=== PATIENT | female | born 1980 | race Caucasian/White ===

== ENCOUNTER → 2025-05-12 | Outpatient (CLI) | payer OTHER, SELFPAY ==
--- NOTE | 2025-05-12 08:50 | US_ITS ---
PROCEDURE: ABDOMEN COMPLETE 05/12/2025 REASON FOR EXAM: EPIGASTRIC, ABDOMINAL PAIN TECHNIQUE: Procedure Code: USABDC Modality: US Procedure: ABDOMEN COMPLETE FINDINGS: LIVER: Hepatomegaly to 17 cm. normal echogenicity. No mass. GALLBLADDER: Normal in size. No gallstones. No sludge. No wall thickening. COMMON BILE DUCT: Normal in caliber. IVC: normal limits. PANCREAS: Normal in size and echogenicity. Tail of pancreas is not well seen. RIGHT KIDNEY: Normal in size and echogenicity. No mass. No urinary stones. No hydronephrosis. LEFT KIDNEY: Normal in size and echogenicity. No mass. No urinary stones. No hydronephrosis. SPLEEN: Normal in size and echogenicity. No mass. Aorta: normal limits. OTHERS: No free fluid. US/Abdomen Complete IMPRESSION: No acute cholecystitis. Pancreas appears sonographically within normal limits. Hepatomegaly. Reading Location: [facility]
--- OUTSIDE RECORDS SUMMARY | 2025-05-12 09:11 | XMS RPT_ITS | CCD ---
Author Organization [facility] Care Team Providers Care Office Electrician Name Role Phone HAROLDO CARLOS CNM Admitting Unavailable ZARCO, CARLOS CNM Primary Care Unavailable ZARCO, CARLOS CNM Attending Unavailable ZARCO, CARLOS CNM Admitting Unavailable ZARCO, CARLOS CNM Primary Care Unavailable ZARCO, CARLOS CNM Attending Unavailable ZARCO, CARLOS CNM Admitting Unavailable ZARCO, CARLOS CNM Primary Care Unavailable ZARCO, CARLOS CNM Attending Unavailable ZARCO, CARLOS CNM Admitting Unavailable ZARCO, CARLOS CNM Primary Care Unavailable ZARCO, CARLOS CNM Attending Unavailable ZARCO, CARLOS CNM Admitting Unavailable ZARCO, CARLOS CNM Primary Care Unavailable ZARCO, CARLOS CNM Attending Unavailable Trena Greer MD Unavailable [phone] Joshua TRACK VEHICLE REPAIRER, Zara Unavailable Natanael CEBALLOS, Ismael Alonso Unavailable Sarah CNM, Crystal K Unavailable Lucía TRACK VEHICLE REPAIRER, Nicolle Unavailable Unavailable Unavailable Unavailable Anselmo GONZALES, Linnea Attending Unavailable Rory MCNAMARA, Sapna Mclaughlin Unavailable [phone] [facility], Ysabel Unavailable Unavailab le (Anderson), [facility] Unavailable TRENA GREER Consulting Unavailable TRENA GREER Referring Unavailable KHRIS CONNOR DO Admitting Unavailable KHRIS CONNOR DO Primary Care Unavailable KHRIS CONNOR DO Attending Unavailable PROVIDER, UNKNOWN Consulting Unavailable PROVIDER, UNKNOWN Consulting Unavailable PROVIDER, UNKNOWN Consulting Unavailable Allergies Allergy Classification Reported Allergen(s) Allergy Type Date of Onset Reaction(s) Facility Penicillins (antibiotic) (2 sources) Penicillin Drug Allergy [facility] (11 sources) Penicillins [facility], [facility] (1 source) Penicillins Drug allergy (disorder) 07-16-2023 [facility] Repository (1 source) Penicillin Drug Allergy [facility] Medications Current Medications Medication Drug Class(es) Dates Sig (Normalized) Sig (Original) sertraline 25 mg oral tablet (18 sources) Serotonin Reuptake Inhibitor Start: 06-22-2024 sertraline 25 mg tablet ; 1 (one) tablet daily for 0 days Quantity: 90 {Tablet} Refills: 3 Ordered: 22-Jun-2024 MD Trena Greer Start: 22-Jun-2024 Start: 04-27-2024 sertraline 25 mg tablet ; 1 (one) tablet daily for 0 days Quantity: 90 {Tablet} Refills: 3 Ordered: 27-Apr-2024 MD Trena Greer Start: 27-Apr-2024 Start: 03-11-2024 sertraline 25 mg tablet ; 1 (one) tablet daily for 0 days Quantity: 60 {Tablet} Refills: 0 Ordered: 11-Mar-2024 MD Trena Greer Start: 11-Mar-2024 Start: 04-14-2018 End: 04-22-2019 take 1 tablet by mouth once daily in the morning Sertraline HCl 50 MG Oral Tablet ; 1 (one) Tablet qam for 0 days Quantity: 30 {Tablet} Refills: 5 Ordered: 22-Apr-2019 TESFAYE Lewis Start: 14-Apr-2018 End: 22-Apr-2019 Status: Inactive Completed/Discontinued Medications Medication Drug Class(es) Dates Sig (Normalized) Sig (Original) doxycycline monohydrate 100 mg oral tablet (12 sources) Tetracycline-class Drug Start: 07-24-2023 End: 10-15-2023 doxycycline monohydrate 100 mg tablet ; 1 (one) Tablet bid for 0 days Quantity: 20 {Tablet} Refills: 0 Ordered: 15-Oct-2023 TESFAYE Hudson Celina Christy Start: 24-Jul-2023 End: 15-Oct-2023 Status: Inactive levonorgestrel 0.721242 mg/hr intrauterine system (12 sources) Progestin, Progestin-containin g Intrauterine Device Mirena (52 MG) 20 MCG/24HR Intrauterine Intrauterine Device ; (20 MCG/24HR) Status: Inactive nystatin 801385 unt/ml topical cream (12 sources) Polyene Antifungal Start: 06-04-2022 End: 07-24-2023 nystatin 100,000 unit/gram topical cream ; 1 (one) Application to affected area three times daily for 0 days Quantity: 30 {Gram} Refills: 1 Ordered: 24-Jul-2023 TESFAYE Lewis Start: 04-Jun-2022 End: 24-Jul-2023 Status: Inactive oseltamivir 75 mg oral capsule (20 sources) Neuraminidase Inhibitor Start: 05-02-2022 End: 05-07-2022 take 1 capsule by mouth twice daily Tamiflu 75 MG Oral Capsule ; 1 (one) Capsule bid for 5 days Quantity: 10 {Capsule} Refills: 0 Ordered: 02-May-2022 MD Ismael Santoyo Start: 02-May-2022 End: 07-May-2022 Status: Inactive Start: 07-16-2018 End: 04-22-2019 take 1 capsule by mouth twice daily Oseltamivir Phosphate 75 MG Oral Capsule ; 1 (one) Capsule two times daily for 5 days Quantity: 10 {Capsule} Refills: 0 Ordered: 22-Apr-2019 TESFAYE Lewis Start: 16-Jul-2018 End: 22-Apr-2019 Status: Inactive Problems Active Problems Problem Classification Problem Date Documented Date Episodic/Chronic Adjustment disorders (14 sources) Adjustment disorder with anxious mood; Translations: [Adjustment disorder with anxiety] 03-11-2024 Chronic Contraceptive and procreative management (20 sources) Intrauterine contraceptive device in situ; Translations: [Presence of (intrauterine) contraceptive device] 07-24-2023 Episodic E Codes: Natural/environment (12 sources) Cat bite - wound; Translations: [Bitten by cat, initial encounter] 04-22-2019 Episodic Fever of unknown origin (20 sources) Fever; Translations: [Fever, unspecified] Onset: 09-18-2023 06-09-2021 Episodic Headache; including migraine (14 sources) Headache; Translations: [Headache] 10-15-2023 Episodic Immunizations and screening for infectious disease (20 sources) Contact with or exposure to other viral diseases; Translations: [Contact with and (suspected) exposure to other viral communicable diseases] 06-09-2021 Episodic Influenza (20 sources) Influenza; Translations: [Influenza due to unidentified influenza virus with other respiratory manifestations] 05-02-2022 Episodic Miscellaneous mental health disorders (12 sources) depression; Translations: [ depression] 04-15-2018 Episodic Nausea and vomiting (13 sources) Nausea; Translations: [Nausea] 10-15-2023 Episodic Other and unspecified benign neoplasm (12 sources) Benign neoplasm of soft tissue; Translations: [Melanocytic nevi, unspecified] 12-11-2021 Episodic Other complications of ; puerperium affecting management of mother (12 sources) Obstetric nipple infection with complication; Translations: [Infection of nipple associated with the puerperium] 01-17-2022 Episodic Other connective tissue disease (12 sources) Plantar fasciitis of right foot; Translations: [Plantar fascial fibromatosis] 04-15-2018 Episodic Other injuries and conditions due to external causes (12 sources) Injury of right ankle; Translations: [Unspecified injury of right ankle, initial encounter] 12-04-2019 Episodic Other nutritional; endocrine; and metabolic disorders (14 sources) Overweight in adulthood with body mass index of 25 or more but less than 30; Translations: [Body mass index (BMI) 28.0-28.9, adult] 03-11-2024 Episodic Other screening for suspected conditions (not mental disorders or infectious disease) (20 sources) Patient encounter status; Translations: [Encounter for screening for lipoid disorders] 10-19-2019 Episodic Other skin disorders (12 sources) Skin tag; Translations: [Other hypertrophic disorders of the skin] 12-11-2021 Episodic Other skin disorders (12 sources) Skin lesion; Translations: [Disorder of the skin and subcutaneous tissue, unspecified] 09-30-2019 Episodic Other skin disorders (8 sources) Skin finding; Translations: [Unspecified skin changes] 03-12-2024 Episodic Other upper respiratory infections (20 sources) Acute ethmoidal sinusitis; Translations: [Acute ethmoidal sinusitis, unspecified] Onset: 09-18-2023 07-24-2023 Episodic Residual codes; unclassified (20 sources) Family history of malignant neoplasm of pancreas; Translations: [Family history of malignant neoplasm of digestive organs] 07-24-2023 Episodic Residual codes; unclassified (12 sources) Up-to-date with immunizations; Translations: [Personal history of other drug therapy] 07-24-2023 Episodic Screening and history of mental health and substance abuse codes (12 sources) Ex-smoker; Translations: [Personal history of nicotine dependence] 07-24-2023 Episodic Unclassified (12 sources) Number of Children 11-03-2019 Comment on above: 2. 4. Unclassified (12 sources) Number of Pregnancies 11-03-2019 Comment on above: 3. 4. Unclassified (12 sources) Vaginal deliveries 11-03-2019 Comment on above: 2. 4. Unclassified (1 source) Cough, unspecified; Translations: [Cough, unspecified] Onset: 09-18-2023 Past or Other Problems Problem Classification Problem Date Documented Da te Episodic/Chronic Unclassified (12 sources) Cold Symptoms - Symptoms include nasal congestion, dry cough, general malaise and headache, but do not include fever. The onset was sudden 1 week(s) ago. The patient describes this as moderate in severity and worsening. Current treatment includes home remedies. Risk factors do not include child in daycare. The patient has not been exposed to secondhand smoke. Note for Upper respiratory infection: - was positive for flu B. She went to urgent care and was negative but given Tamiflu on 07/16 due to exposure. 07-24-2023 Unclassified (12 sources) Skin lesion - Note for Skin lesion: 4 moles/skin tags on chest. 12-11-2021 Unclassified (12 sources) Ankle pain - The onset of the ankle pain has been sudden and has been occurring for 2 weeks. The course has been worsening. The pain is characterized as a dull aching. The pain is in the right ankle. 12-04-2019 Unclassified (12 sources) Well adult female - The patient feels well with no complaints, has good energy level and is sleeping well. The patient takes supplemental vitamins. The patient does not exercise. The patient sleeps 8 hours per night. Note for Well adult female: -Plans IUD removal in next year and wishes to have pap test at that time. She never had abnormal. She has no breast complaints. She has had diarrhea for 8 hours and wonders if she picked something up from a calf or eating carry out food. She has some moles she will want to have removed in the future. 10-19-2019 Unclassified (12 sources) Skin lesion - The skin lesion appeared gradually and has been occurring for 3 years. It has been increasing in size. The lesion is characterized as red and raised above the skin. The lesion is located on the trunk (chest). 09-30-2019 Unclassified (12 sources) cat bite - Bit by a barn cat on 4th finger left hand this morning. It continues to bleed. She does not know last tetanus. 04-22-2019 Unclassified (12 sources) Foot pain - The pain is in the right foot and is located in the entire foot. The onset of the foot pain was gradual and has been occurring in an intermittent pattern for 3 weeks. The pain is moderate. The pain is characterized as a dull aching. 04-15-2018 Unclassified (11 sources) Nausea - The onset of the nausea has been acute and has been occurring in a persistent pattern for 1 day. The course has been increasing. The symptoms have no aggravating factors. The symptoms have no relieving factors. The symptoms have been associated with fever (101 yesterday - she has not checked her temperature today.) and headache, but there has been no associated abdominal pain, chest pain, diarrhea, dysuria, myalgia, neck stiffness, , upper respiratory infection symptoms or vomiting. Note for Nausea: Tylenol has been bringing the fever down but has not helped the headache.Patient denies any known sick contacts. 10-15-2023 Unclassified (1 source) Well adult female 03-11-2024 Unclassified (7 sources) Well adult female - The patient feels well with minor complaints, has decreased energy level and is sleeping well. The patient takes no supplemental vitamins & iron. The patient does not exercise. The patient sleeps 8 hours per night. 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 [address] [phone] 02/14/2025 Patient: GEOFF AGUILAR Sex: Female : 1980 Age: 44y MEASUREMENTS: Wt: 90.7 kg, Ht/Mc: 74.0 in, BMI: 25.68 ALLERGIES: Penicillins Medication Ordered Medication Administration Date/Time Glucagon IVP 1 20:36 02/14 Glucagon IVP 1 mg given via Site# 1. Given mg (NOW x1) Allergies verified and confirmed 5 rights. IV patency 20:36 02/14/2025 established. IV site checked: no pain, redness, or swelling. Ana Oseguera IV flushed thoroughly pre-medication administration. IVP R.N. given by nurse. Information reviewed with patient. - 20:39 Scanned Ana Oseguera R.N. Carafate PO 1 g 23:13 02/14 Carafate PO 1 g given. Allergies verified and Given (NOW x1) confirmed 5 rights. Information reviewed with patient. - 23:13 02/14/2025 23:13 Susana Nagy R.N. Scanned 1 of 1 [facility] ED NURSES CLINICAL NOTEon ED NURSES CLINICAL NOTE Nurse Narrative - GEOFF AGUILAR, : 1980, , Nurse Clinical Narrative [address] [address] [id number] 02/14/2025 19:51:00 Patient: GEOFF AGUILAR Sex: Female : 1980 Age: 44y Disposition: Discharge to Home Disposition Decision Time: 22:48 02/14/2025 Departure Time: 23:38 02/14/2025 TRIAGE Arrived by private vehicle. Historian: (patient). Primary physician (Vacc). Triage time: 19:54 02/14/2025. Acuity: LEVEL 2. Chief Complaint: (Chest Pressure with swallowing). This started yesterday. ( Patient states that she has a midsternal chest pressure when she swallows. She is concerned that there may be food in her esophagus from dinner on Saturday night.). No difficulty breathing. SEPSIS SCREEN: NEGATIVE. SIRS criteria negative. -- 19:59 02/14/25 FARHAD Sharp R.N. 19:57 02/14/25. BP: 117/82 MAP: 94. HR: 70. RR: 16. O2 saturation: 96% Temperature: 98.8 F (oral). Pain level now 0/10. -- 19:58 02/14/25 SANDERT Nathalia Sharp R.N. Measurements: 19:57 02/14/25 Wt: 90.7 kg, Ht/Mc: 74.0 in, BMI: 25.68 -- 19:57 02/14/25 SANDERT Nathalia Sharp R.N. Medications: sertraline 25 mg tablet -- 20:00 02/14/25 SANDERT Nathalia Sharp R.N. 1 of 4 Nurse Narrative - GEOFF AGUILAR, : 1980, , Allergies: Penicillins -- 19:55 02/14/25 FARHAD Sharp R.N. Problems: Depression -- 19:57 02/14/25 SANDERT Nathalia Sharp R.N. Surgeries: Jaw Surgery: Performed 2000. Bilateral -- 19:56 02/14/25 FARHAD Sharp R.N. History 19:54 02/14/25. SOCIAL HX: Never smoker. No alcohol use or drug use. The patient has not traveled outside the [place] Infectious disease exposure: No infectious disease exposure. ABUSE ASSESSMENT: The patient answered yes to the question(s) Do you feel safe in your home? and no to the question(s) Are you afraid to go home?. SELF HARM ASSESSMENT: Self harm assessment was performed. The patient answered no to the question(s) Have you recently felt down, depressed, or hopeless? and Do you have thoughts of harming or killing yourself?. FALL RISK ASSESSMENT: Fall risk assessment completed. No risk factors identified. -- 19:59 02/14/25 FARHAD Sharp R.N. Interventions 19:54 02/14/25. Advanced care plan discussed with patient. Patient does not have advanced directive. -- 19:59 02/14/25 EDT Nathalia Aron, R.N. PHYSICAL ASSESSMENT 19:54 02/14/25. BP: 117/82 MAP: 91 mmHg. HR: 62 bpm. -- 22:02/14/25 EDT Ana Oseguera R.N. 2 of 4 Nurse Narrative - GEOFF AGUILAR, : 1980, , 19:56 02/14/25. HR: 66 bpm. O2 saturation: 96%. -- 22:28 02/14/25 EDT Ana Oseguera R.N. 19:57 02/14/25. BP: 117/82 MAP: 94. HR: 70. RR: 16. O2 saturation: 96% Temperature: 98.8 F (oral). Pain level now 0/10. -- 22:02/14/25 EDT Ana Oseguera R.N. 20:27 02/14/25. Ambulatory to room. Patient gowned. GENERAL / NEURO / PSYCH: Alert. Oriented X 4. RESPIRATORY: Respirations not labored. Breath sounds within normal limits. CVS: Heart sounds within normal limits. GI / : Abdomen soft and nontender. SKIN: Skin is warm and dry. -- 22:02/14/25 EDT nAa Oseguera R.N. NURSING PROGRESS NOTES 19:51 02/14/25. 12-LEAD EKG: EKG time: (19:51 02/14/2025). 12-Lead EKG was ordered, performed by me and shown to the ED physician. Sinus rhythm with marked sinus arrhythmia. -- 20:11 02/14/25 EDT Nathalia Sharp R.N. 20:02/14/25. Site #1 started in the right antecubital space with an 18g needle; 1 attempt. Blood drawn: rainbow set tube(s). Saline lock flushed with 5 mL saline. -- 20:31 02/14/25 EDT Martha Zarco R.N. 20:36 02/14/25. Glucagon IVP 1 mg given via Site# 1. Allergies verified and confirmed 5 rights. IV patency established. IV site checked: no pain, redness, or swelling. IV flushed thoroughly pre-medication administration. IVP given by nurse. Information reviewed with patient. -- 20:39 02/14/25 EDT Ana Oseguera R.N. 21:20 02/14/25. Patient transported to radiology by stretcher with division order technician. -- 22:02/14/25 EDT Ana Oseguera R.N. 21:40 02/14/25. Patient returned from radiology by stretcher with division order technician. -- 22:02/14/25 EDT Ana Oseguera R.N. 22:12 02/14/25. The patient reports no complaints and the patient is calm and resting quietly. -- 22:02/14/25 EDT Ana Oseguera R.N. 22:02/14/25. The patient reports no complaints and the patient is calm and sleeping. -- 22:02/14/25 EDT Ana Oseguera R.N. 23:02/14/25. Carafate PO 1 g given. Allergies verified and confirmed 5 rights. Information reviewed with patient. -- 23:02/14/25 EDT Ana Oseguera R.N. 23:02/14/25. Site #1 removed upon discharge. Catheter intact. Pressure dressing applied. -- 23:02/14/25 EDT Ana Jo (more content not included)... [facility] ED ORDER SHEET (CPOE ONLY)on 02-17-2025 ED ORDER SHEET (CPOE ONLY) Order Sheet - GEOFF AGUILAR, : 1980, , Order Sheet [address] [address] [id number] 02/14/2025 Patient: GEOFF AGUILAR Sex: Female : 1980 Age: 44y MEASUREMENTS: Wt: 90.7 kg, Ht/Mc: 74.0 in, BMI: 25.68 ALLERGIES: Penicillins MEDICATION/IV/DRIP/FL UID ORDERS Acknowledge Order Description Priority Entered d Completed Glucagon IVP1 mg (NOW 20:26 02/14/2025 20:29 20:39 x1) Khris Connor D.O. 02/14/2025 02/14/2025 Susana Torre R.N. Carafate PO1 g (NOW x1) 22:44 02/14/2025 23:08 23:13 Khris Connor D.O. 02/14/2025 02/14/2025 Susana Torre R.N. LAB ORDERS Acknowledge Order Description Priority Entered d Collected Completed CBC w Diff Stat Stat 20:06 20:28 20:29 02/14/2025 02/14/2025 02/14/2025 Martha Mera Tessa Miller, D.O. R.N. RRemediosNRemedios 1 of 3 Order Sheet - ARELIS AGUILARFER, : 1980, , BNP Stat Stat 20:06 20:28 20:29 02/14/2025 02/14/2025 02/14/2025 Martha Mera Tessa Miller, D.O. R.N. R.NRemedios CMP Stat Stat 20:06 20:28 20:29 02/14/2025 02/14/2025 02/14/2025 Martha Mera Tessa Miller, D.O. R.N. R.NRemedios EKG - ED Stat Stat 20:06 20:09 20:09 02/14/2025 02/14/2025 02/14/2025 Nathalia Mera, Nathalia Sharp D.O. R.N. R.NRemedios Lipase Stat Stat 20:23 20:28 20:29 02/14/2025 02/14/2025 02/14/2025 Martha Mera Tessa Miller, D.O. R.NRemedios R.NRemedios Troponin-I Stat Stat 20:25 20:28 20:29 02/14/2025 02/14/2025 02/14/2025 Martha Mera Tessa Miller, D.O. R.N. R.[place]on HCG, Qual Serum- Stat 20:48 20:48 21:09 Preg Stat 02/14/2025 02/14/2025 02/14/2025 Ana Nagy Christie R.N. R.N. Deusenberry, Verbal Order, R.N. Auth by: Khris Connor D.O. 2 of 3 Order Sheet - GEOFF AGUILAR, : 1980, , DIAGNOSTIC STUDY ORDERS Acknowledge Order Description Priority Entered d Completed CT Chest w Cont Stat Stat 20:21 02/14/2025 20:28 23:13 Khris Connor D.O. 02/14/2025 02/14/2025 Ana Diaz R.N., RMarek Order 20:20 Status: Not . Khris Connor D.O. Comments: 02/14/2025: Reason for Study: esophageal food bolus STAFF ORDERS Acknowledge Order Description Priority Entered d Collected Completed Embedded Software Test Engineer 20:06 20:28 23:13 02/14/2025 02/14/2025 02/14/2025 Martha Mera Debra Schrock, D.O. R.N. R.N. Vital signs every 15 20:06 20:28 23:13 minutes 02/14/2025 02/14/2025 02/14/2025 Martha Mera Debra Schrock, D.O. R.N. R.N. IV Saline Lock 20:06 20:28 20:29 02/14/2025 02/14/2025 02/14/2025 Martha Mera Tessa Miller, D.O. R.N. R.NRemedios [Electronically signed by Khris Connor D.O. (02/17/2025 23:44 EDT)] 3 of 3 [facility] ED PHYSICIAN CLINICAL REPORT on 02-17-2025 ED PHYSICIAN CLINICAL REPORT Narrative - GEOFF AGUILAR, : 1980, , Physician Clinical Narrative [address] [address] [id number] 02/14/2025 19:51:00 Patient: GEOFF AGUILAR Sex: Female : 1980 Age: 44y Disposition: Discharge to Home Disposition Decision Time: 22:48 02/14/2025 Departure Time: 23:38 02/14/2025 Measurements Wt: 90.7 kg, Ht/Mc: 74.0 in, BMI: 25.68 Initial Vital Sign Measured Mellisa Time BP MAP HR RR O2Sat ETCO2 Temp n GCS RTS 19:54 117/82 91 62 02/14/2025 Time Seen: 19:55 02/14/2025. Arrived- By private vehicle. Historian- patient. HISTORY OF PRESENT ILLNESS Chief Complaint: CHEST PAIN. It is described as pressure. No radiation. This started 2 days ago on saturday and is still present. Severity: Chest pressure occurs only when she swallows. At its maximum, severity described as mild. When seen in the E.D., severity described as mild. No nausea, vomiting, difficulty breathing or diaphoresis. Similar symptoms previously. None. Recent medical care: Not recently seen/assessed. 1 of 11 Narrative - GEOFF AGUILAR, : 1980, , REVIEW OF SYSTEMS SKIN: No skin rash. : No difficulty with urination. GI: No abdominal pain or black stools. MUSCULOSKELETAL: No joint pain. THROAT: No sore throat. NEUROLOGICAL: No fainting episodes or headache. CVS: No pedal edema or calf pain. RESPIRATORY: No cough. CONSTITUTIONAL: No fever or chills. ENDO/HEME/LYMPH: No enlarged lymph nodes. EYES: No blurred vision. Status: Not . PAST HISTORY See nurses notes. Depression Surgeries: Jaw Surgery: [2001], Body Site Bilateral Medications: sertraline 25 mg tablet Allergies: Penicillins SOCIAL HISTORY Never smoker. No alcohol use or drug use. ADDITIONAL NOTES The nursing notes have been reviewed. PHYSICAL EXAM Appearance: Alert. Oriented X3. No acute distress. Eyes: Pupils equal, round and reactive to light. ENT: Nose normal. Pharynx normal. Neck: Normal inspection. Neck supple. 2 of 11 Kris - GEOFF AGUILAR, : 1980, , CVS: Normal heart rate and rhythm. Heart sounds normal. Pulses normal. Respiratory: No respiratory distress. Breath sounds normal. Chest nontender. Abdomen: Soft and nontender. Bowel sounds normal. No organomegaly. No mass. Back: Normal external inspection. Skin: Skin warm and dry. No rash. Extremities: Extremities exhibit normal ROM. No lower extremity edema. Neuro: Oriented X 3. No motor deficit. No sensory deficit. LABS, X-RAYS, AND EKG 12-LEAD EKG: EKG time: 19:51 02/14/2025. Normal sinus rhythm. Rate: 63. Normal P waves. Normal QRS complex. Normal ST and T waves. The study has been interpreted contemporaneously by me. The EKG appears to be a good tracing. Interpretation time: 19:52 02/14/2025. Chest CT: (bibasilar linear atelectasis is present. No visible pulmonary disease. Vasculature is normal no visible pulmonary arterial thrombus or attenuation. Amisha are normal. No mass or adenopathy. mediastinum was normal. No mass or adenopathy. Cardiac was normal showed no enlargement pericardial thickening or significant calcification. Aorta showed no evidence of any aneurysm or dissection. Pleura showed no evidence of any mass or effusion. There was no chest wall mass or axillary adenopathy. Limited images of the upper abdomen are unremarkable. No bony lesion or fracture. Other; negative conclusion is no evidence of acute thoracic abnormality.). Interpretation time: 22:02 02/14/2025. Laboratory Tests: CBC + DIFF Final MARCO ANTONIO: 02/14/2025 20:25:00 EDT MsgRcvd: 02/14/2025 20:40 EDT Lab Test Result Reference Status Received 02/14/2025 20:40 CBC + DIFF Final EDT CBC-COMPLETE BLOOD COUNT 02/14/2025 20:40 WBC 5.2 x 10/UL 4.5 - 10.8 Final EDT 3.87 x 10/UL 02/14/2025 20:40 RBC 4.10 - 5.30 Final Below low normal EDT 3 of 11 Narrative - GEOFF AGUILAR, : 1980, , 02/14/2025 20:40 HEMOGLOBIN 12.5 g/dl 12.0 - 16.0 Final EDT 02/14/2025 20:40 HEMATOCRIT 35.5 % 34.0 - 46.0 Final EDT 02/14/2025 20:40 MCV 92 fl 80 - 99 Final EDT 02/14/2025 20:40 MCH 32 pg 27 - 33 Final EDT 02/14/2025 20:40 MCHC 35 X10 3 32 - 36 Final EDT 02/14/2025 20:40 RDW/CV 12.7 % 12.0 - 15.6 Final EDT 02/14/2025 20:40 PLATELET 301 x10/UL 150 - 450 Final EDT 02/14/2025 20:40 MPV 8.7 fl 6.6 - 10.5 Final EDT AUTOMATED DIFFERENTIAL 42.7 % 02/14/2025 20:40 NEUT % 46.0 - 76.0 Final Below low normal EDT 02/14/2025 20:40 LYMPH % 44.7 % 20.0 - 45.0 Final EDT 02/14/2025 20:40 MONOS % 8.0 % 0.0 - 10.0 Final EDT 02/14/2025 20:40 EO % 4.0 % 0.0 - 7.0 Final EDT 09 (more content not included)... Normal [facility] ED SUPER BILLon 02-17-2025 ED SUPER BILL [facility] - GEOFF AGUILAR, : 1980, , [address] [address] [id number] 02/14/2025 Patient: GEOFF AGUILAR Sex: Female : 1980 Age: 44y Item Facility Profession Category Description Code al Code Quantity Fee Total Nurse/E/M EMERGENCY 012811 1 $0.00 $0.00 DEPARTMEN T VISIT HIGH/URGEN T SEVERITY (06950-87) Nurse/IV/IM/ IVP initial 610558 1 $0.00 $0.00 Infusions (96995) Grand Total $0.00 Providers Khris Connor D.O. Chief Complaint CHEST PAIN. Principal Diagnosis Gastroesophageal reflux disease with esophagitis. Acute esophagitis associated with gastro-esophageal reflux disease (GERD). 1 of 2 [facility] GEOFF JASSO, : 1980, , ICD-10 Codes K21.00: Gastro-esophageal reflux disease with esophagitis, without bleeding K21.00: Gastro-esophageal reflux disease with esophagitis, without bleeding 2 of 2 Normal [facility] ED VISIT SUMMARYon ED VISIT SUMMARY Visit Overview - GEOFF AGUILAR, : 1980, , Visit [address] [address] [id number] 02/14/2025 Patient: GEOFF AGUILAR Sex: Female : 1980 Age: 44y 02/17/2025 11:45 PM EDT ED Arrival:19:51 02/14/2025 Status:not Recent Travel:no EDT Language:eng Adv Directive:No Isolation Status: Infectious Disease Ethnicity:N Fall Risk:no risk Exposure:no Measurements:6'2 / 188.0 Self-Harm Status:risk Sepsis Screen:negative cm 200.0 lb / 90.7 kg Chief Complaint:(Chest Pressure with swallowing), (Patient states that she has a midsternal chest pressure when she swallows. She is concerned that there may be food in her esophagus from dinner on Saturday night.), and (Vacc) ALLERGIES Penicillins 1 of 3 Visit Overview - GEOFF AGUILAR, : 1980, , HOME MEDICATIONS sertraline 25 mg tablet PAST MEDICAL HISTORY / PROBLEMS Depression See nurses notes PAST SURGICAL HISTORY Jaw Surgery: Performed 2000. Bilateral SOCIAL HISTORY Smoking status: No Alcohol use: No Drug use: No ED COURSE MEDICATIONS GIVEN IN EMERGENCY DEPARTMENT 20:36 02/14/25 Glucagon IVP 1 mg 23:13 02/14/25 Carafate PO 1 g IV SITE INFORMATION INTAKE OUTPUT REASSESMENT (most recent) 22:27 02/14/25. The patient reports no complaints and the patient is calm and sleeping. VITAL SIGNS First Vitals Last Vitals Temp 19:54 02/14/25 Temp 23:09 02/14/25 BP 19:54 02/14/25 117/82 BP 23:09 02/14/25 105/69 HR 19:54 02/14/25 62 HR 23:09 02/14/25 67 RR 19:54 02/14/25 RR 23:09 02/14/25 2 of 3 Visit Overview - GEOFF AGUILAR, : 1980, , O2 Sat 19:54 02/14/25 O2 Sat 23:09 02/14/25 Pain 19:54 02/14/25 Pain 23:09 02/14/25 ETCO2 19:54 02/14/25 ETCO2 23:09 02/14/25 GCS 19:54 02/14/25 GCS 23:09 02/14/25 RTS 19:54 02/14/25 RTS 23:09 02/14/25 PROCEDURES NURSING INTERVENTIONS LABS / STUDIES LABS / STUDIES ORDERED BNP CBC w Diff CMP CT Chest w Cont EKG - ED HCG, Qual Serum- Preg Lipase Troponin-I CLINICAL IMPRESSION ACUTE ESOPHAGITIS ASSOCIATED WITH GASTRO-ESOPHAGEAL REFLUX DISEASE (GERD) GASTROESOPHAGEAL REFLUX DISEASE WITH ESOPHAGITIS 3 of 3 Normal [facility] ED VITALS FLOW SHEETon 02-17 ED VITALS FLOW SHEET Vitals - GEOFF AGUILAR, : 1980, , Vital Sign Flow Sheet [address] [address] [id number] 02/14/2025 Patient: GEOFF AGUILAR Sex: Female : 1980 Age: 44y Measurements Wt: 90.7 kg, Ht/Mc: 74.0 in, BMI: 25.68 Measured Mellisa Time BP MAP HR RR O2Sat ETCO2 Temp n GCS RTS 23:09 105/69 76 67 02/14/2025 22:56 69 96% 02/14/2025 22:54 111/72 76 68 02/14/2025 22:51 69 97% 02/14/2025 22:46 71 97% 02/14/2025 22:41 64 97% 02/14/2025 22:39 105/65 73 67 02/14/2025 22:36 68 97% 02/14/2025 1 of 4 [facility] - GEOFF AGUILAR, : 1980, , 22:31 68 97% 02/14/2025 22:26 61 97% 02/14/2025 22:24 101/61 79 60 02/14/2025 22:21 60 98% 02/14/2025 22:16 58 99% 02/14/2025 22:11 54 98% 02/14/2025 22:09 110/77 84 54 02/14/2025 22:06 58 97% 02/14/2025 22:01 77 100% 02/14/2025 21:56 58 98% 02/14/2025 21:54 109/74 82 57 02/14/2025 21:51 57 99% 02/14/2025 21:46 56 97% 02/14/2025 21:41 63 98% 02/14/2025 21:39 114/75 88 68 02/14/2025 2 of 4 Kevin - GEOFF AGUILAR, : 1980, , 21:36 68 98% 02/14/2025 21:16 69 96% 02/14/2025 21:11 66 96% 02/14/2025 21:09 113/71 78 65 02/14/2025 21:06 68 97% 02/14/2025 21:01 71 96% 02/14/2025 20:56 75 96% 02/14/2025 20:54 106/75 83 70 02/14/2025 20:51 63 97% 02/14/2025 20:46 66 96% 02/14/2025 20:41 69 96% 02/14/2025 20:39 119/80 93 66 02/14/2025 20:36 69 95% 02/14/2025 20:31 69 98% 02/14/2025 20:26 67 96% 02/14/2025 3 of 4 GEOFF Domingo, : 1980, , 20:24 121/85 94 63 02/14/2025 20:21 64 97% 02/14/2025 20:16 66 96% 02/14/2025 20:11 71 97% 02/14/2025 20:06 72 97% 02/14/2025 20:01 65 97% 02/14/2025 19:57 117/82 94 70 16 96% 98.8 F 0 02/14/2025 19:56 66 96% 02/14/2025 19:54 117/82 91 62 02/14/2025 4 of 4 Normal [facility] CBC + DIFFon 02-14-2025 Baso # 0.03 x10EE3/UL Normal 0.00 - 0.10 [facility] Comment on above: Performed By: #### 2 62841 #### [facility],[address] [place] [address] Basophils/100 WBC (Bld) 0.6 % Normal 0.0 - 2.0 [facility] Comment on above: Performed By: #### 2 67914 #### [facility],[address] [place] [address] CBC + DIFF Normal [facility] Comment on above: Result Comment: CBC- COMPLETE BLOOD COUNT Performed By: #### 2 61943 #### [facility],[address] [place] [address] EO # 0.21 x10EE3/UL Normal 0.00 - 0.50 [facility] Comment on above: Performed By: #### 2 40338 #### [facility],[address] [place] [address] Eosinophils/100 WBC (Bld) 4.0 % Normal 0.0 - 7.0 [facility] Comment on above: Performed By: #### 2 20355 #### [facility],[address] [place] [address] Erythrocyte distribution width (RBC) [Ratio] 12.7 % Normal 12.0 - 15.6 [facility] Comment on above: Performed By: #### 2 67218 #### [facility],[address] [place] [address] Hematocrit (Bld) [Volume fraction] 35.5 % Normal 34.0 - 46.0 [facility] Comment on above: Performed By: #### 2 49021 #### [facility],[address] [place] [address] Hemoglobin (Bld) [Mass/Vol] 12.5 g/dL Normal 12.0 - 16.0 [facility] Comment on above: Performed By: #### 2 60876 #### [facility],[address] [place] [address] Lymph # 2.30 x10EE3/UL Normal 0.80 - 2.80 [facility] Comment on above: Performed By: #### 2 37635 #### [facility],[address] [place], [place] [address] Lymphocytes/100 WBC (Bld) 44.7 % Normal 20.0 - 45.0 [facility] Comment on above: Performed By: #### 2 25583 #### [facility],[address] [place] [address] MANUAL DIFF N/A Normal [facility] Comment on above: Performed By: #### 2 39575 #### [facility],[address] [place], [place] [address] MCH (RBC) [Entitic mass] 32 pg Normal 27 - 33 [facility] Comment on above: Performed By: #### 2 37754 #### [facility],[address] [place] [address] MCHC 35 X10 3 Normal 32 - 36 [facility] Comment on above: Performed By: #### 2 01067 #### [facility],[address] [place] [address] MCV (RBC) [Entitic vol] 92 fL Normal 80 - 99 [facility] Comment on above: Performed By: #### 2 52674 #### [facility],[address] [place] [address] [place] # 0.41 x10EE3/UL Normal 0.20 - 1.00 [facility] Comment on above: Performed By: #### 2 25083 #### [facility],[address] [place] [address] MONOS % 8.0 % Normal 0.0 - 10.0 [facility] Comment on above: Performed By: #### 2 86268 #### [facility],[address] [place] [address] Morphology Axel (Bld) [Interp] N/A Normal [facility] Comment on above: Performed By: #### 2 96427 #### [facility],[address] [place] [address] Neut # 2.20 x10EE3/UL Normal 1.50 - 7.10 [facility] Comment on above: Performed By: #### 2 99298 #### [facility],[address] [place] [address] Neutrophils/100 WBC (Bld) 42.7 % Low 46.0 - 76.0 [facility] Comment on above: Performed By: #### 2 87524 #### [facility],[address] [place] [address] PLATELET 301 x10EE3/UL Normal 150 - 450 [facility] Comment on above: Performed By: #### 2 73559 #### [facility],[address] [place] [address] Platelet mean volume (Bld) [Entitic vol] 8.7 fL Normal 6.6 - 10.5 [facility] Comment on above: Result Comment: AUTO MATED DIFFERENTIAL Performed By: #### 2 59963 #### [facility],[address] [place] [address] 12465 RBC 3.87 x 10EE6/UL Low 4.10 - 5.30 [facility] Comment on above: Performed By: #### 2 09652 #### [facility],[address] [place] [address] WBC 5.2 x 10EE3/UL Normal 4.5 - 10.8 [facility] Comment on above: Performed By: #### 2 13799 #### [facility],[address] [place], [place] [address] CMP with eGFRon 02-14-2025 AGE 44 years Normal [facility] Comment on above: Performed By: #### 2 18045 #### [facility],[address] [place] [address]605 Albumin [Mass/Vol] 3.4 g/dL Normal 3.4 - 5.0 [facility] Comment on above: Performed By: #### 2 03811 #### [facility],[address] [place] [address] Albumin/Globulin [Mass ratio] 1.2 {ratio} Normal 0.9 - 1.6 [facility] Comment on above: Performed By: #### 2 81471 #### [facility],[address] [place] [address] ALK PHOS 62 U/L Normal 46 - 116 [facility] Comment on above: Performed By: #### 2 56302 #### [facility],[address] [place] [address] ALT [Catalytic activity/Vol] 17 U/L Normal 16 - 63 [facility] Comment on above: Performed By: #### 2 56705 #### [facility],[address] [place] [address] 90368 Anion gap [Moles/Vol] 8 mmol/L Low 10 - 20 [facility] Comment on above: Performed By: #### 2 07946 #### [facility],[address] [place] [address] 87396 AST [Catalytic activity/Vol] 13 U/L Normal 13 - 39 [facility] Comment on above: Performed By: #### 2 57370 #### [facility],[address] [place] [address] B/C RATIO 18 ratio Normal 0 - 30 [facility] Comment on above: Performed By: #### 2 17209 #### [facility],[address] [place] [address] Bilirubin [Mass/Vol] 0.2 mg/dL Normal 0.2 - 1.0 [facility] Comment on above: Performed By: #### 2 88868 #### [facility],[address] [place] [address] Calcium [Mass/Vol] 9.3 mg/dL Normal 8.5 - 10.1 [facility] Comment on above: Performed By: #### 2 12398 #### [facility],[address] [place] [address] Chloride [Moles/Vol] 102 mmol/L Normal 98 - 107 [facility] Comment on above: Performed By: #### 2 67719 #### [facility],[address] [place] [address] CMP with eGFR Normal [facility] Comment on above: Result Comment: COMP REHENSIVE METABOLIC PANEL Performed By: #### 2 85493 #### [facility],[address] [place] [address] 23582 CO2 [Moles/Vol] 28.0 mmol/L Normal 21.0 - 32.0 [facility] Comment on above: Performed By: #### 2 47787 #### [facility],[address] [place] [address] 00247 Creatinine [Mass/Vol] 0.83 mg/dL Normal 0.55 - 1.02 [facility] Comment on above: Performed By: #### 2 73305 #### [facility],[address] [place] [address] GFR/1.73 sq M.predicted among non-blacks MDRD (S/P/Bld) [Vol rate/Area] mL/min/{1.73_m2} Normal 60 - 999 [facility] Comment on above: Performed By: #### 2 63925 #### [facility],[address] [place] [address] Result Comment: ACCO RDING TO THE NATIONAL KIDNEY DISEASE EDUCATION PROGRAM(NKDE), A NORMAL eGFR IS A VALUE GREATER THAN OR EQUAL TO 60 ML/MIN/1.73 SQ METERS. CHRONIC KIDNEY DISEASE: <60mL/MIN/1.73 SQ METERS KIDNEY FAILURE: <15mL/MIN/1.73 SQ METERS THIS TEST SHOULD ONLY BE USED FOR PATIENTS 18 YEARS OF AGE AND OLDER. Globulin (S) [Mass/Vol] 2.9 g/dL Normal 1.5 - 3.8 [facility] Comment on above: Performed By: #### 2 11256 #### [facility],[address] [place] [address] 06467 Glucose [Mass/Vol] 83 mg/dL Normal 74 - 106 [facility] Comment on above: Performed By: #### 2 61413 #### [facility],[address] [place] [address] 40094 Potassium [Moles/Vol] 3.7 mmol/L Normal 3.5 - 5.1 [facility] Comment on above: Performed By: #### 2 90294 #### [facility],[address] [place] [address] 99838 Protein [Mass/Vol] 6.3 g/dL Low 6.4 - 8.2 [facility] Comment on above: Performed By: #### 2 03800 #### [facility],[address] [place] [address] 60667 Sodium [Moles/Vol] 134 mmol/L Low 136 - 145 [facility] Comment on above: Performed By: #### 2 44029 #### [facility],[address] [place], [place] [address] Urea nitrogen [Mass/Vol] 15 mg/dL Normal 7 - 18 [facility] Comment on above: Performed By: #### 2 51893 #### [facility],[address] [place] [address] CHEST W/CONTRASTon 2024 CT CHEST W/CONTRAST [address] ? [place] [address] ? Patient: GEOFF AGUILAR Phone#: : 1980 Age: 44 Gender: F Pt. Type: ER Account: [id number] Location: [facility] Ordering: KHRIS CONNOR Exam Date: 02/14/2025/21:25 Family Phys: TRENA DEJUANCALEB Charge Code: [id number] Physician: Butts Order #: [id number] Dose#: 4.7 PROCEDURE: CT CHEST WITH CONTRAST COMPARISON: None. INDICATIONS: Esophageal food bolus. TECHNIQUE: After obtaining the patient's consent, CT images were obtained with non-ionic intravenous contrast material. All CT scans at this facility use dose modulation, iterative reconstruction, and/or weight based dosing when appropriate to reduce radiation dose to as low as reasonably achievable. IV CONTRAST: Omnipaque 350,80ml TOTAL DOSE: 4.7 CTDIvol(mGy) FINDINGS: LUNGS: Bibasilar linear atelectasis is present. No visible pulmonary disease. VASCULATURE: Normal. No visible pulmonary arterial thrombus or attenuation. AMISHA: Normal. No mass or adenopathy. MEDIASTINUM: Normal. No mass or adenopathy. CARDIAC: Normal. No enlargement, pericardial thickening, or significant calcification. AORTA: Normal. No aneurysm or dissection. PLEURA: Normal. No mass or effusion. CHEST WALL: Normal. No mass or axillary adenopathy. LIMITED ABDOMEN: Normal. Limited images of the upper abdomen are unremarkable. BONES: Normal. No bony lesion or fracture. OTHER: Negative. CONCLUSION: 1. There is no evidence of acute thoracic abnormality. Dictated by: Rosaura Barron MD on 02/14/2025 at 21:56 Continued Report - Page 2 of 2 Patient: GEOFF AGUILAR Phone#: : 1980 Age: 44 Gender: F Pt. Type: ER Account: [id number] Location: 052 Ordering: KHRIS CONNOR Exam Date: 02/14/2025/21:25 Family Phys: TRENA GREER Charge Code: 157158 Physician: Butts Order #: [id number] Dose#: 4.7 Approved by: Rosaura Barron MD on 02/14/2025 at 22:02 Normal [facility] LIPASEon 02-14-2025 Lipase [Catalytic activity/Vol] 102.0 U/L High 15.0 - 78.0 [facility] Comment on above: Result Comment: *PLE ASE NOTE THAT RANGES FOR LIPASE HAVE CHANGED OF 05/17/23 DUE TO AN ASSAY UPDATE BY THE APPLIANCE ADJUSTER.THE NEW ASSAY RANGE IS 6-250 U/L, WITH A REFERENCE RANGE OF 16-77 U/L. Performed By: #### 2 11580 #### [facility],[address] [place] [address] NT-proBNPon 02-14-2025 Natriuretic peptide B (Bld) [Mass/Vol] 37 pg/mL Normal 0 - 125 [facility] Comment on above: Performed By: #### 2 43730 #### [facility],[address] [place] [address] SERUM QUALon 02-14 EXTERNAL QC DONE? YES Normal [facility] Comment on above: Performed By: #### 2 09178 ####[facility],[address] [place] [address] INTERNAL QC PASS Normal [facility] Comment on above: Performed By: #### 2 11573 ####[facility],[address] [place] [address] SER Negative Normal NEGATIVE [facility] Comment on above: Performed By: #### 2 53700 ####[facility],[address] [place], [place] [address] TROPONINon 02-14-2025 HS TROPONIN <4.0 Normal 0.0 - 51.4 [facility] Comment on above: Performed By: #### 2 64308 #### [facility],[address] [place] [address] 04681 GLUCOSEon 03-12-2024 Glucose [Mass/Vol] 87 mg/dL Normal 65-99 [facility] Comment on above: Result Comment: Fasting reference interval Performed By: #### 7 600, 483 #### [facility] of [address], [address] [place] [address] [employer]: Vlad Booth MD LIPID PANEL, STANDARDon 02-18 Cholesterol [Mass/Vol] 184 mg/dL Normal <200 [facility] Comment on above: Performed By: #### 7 600, 483 #### [facility] [address], [address] [place] [address] [employer]: Vlad Booth MD Cholesterol in HDL [Mass/Vol] 59 mg/dL Normal > OR = 50 [facility] Comment on above: Performed By: #### 7 600, 483 #### [facility] of [address], [address] [place] [address] [employer]: Vlad Booth MD Cholesterol in LDL [Mass/Vol] 101 mg/dL High [facility] Comment on above: Result Comment: Refe rence range: <100 Desirable range <100 mg/dL for primary prevention; <70 mg/dL for patients with CHD or diabetic patients with > or = 2 CHD risk factors. LDL-C is now calculated using the Leroy-Mckay calculation, which is a validated novel method providing better accuracy than the Friedewald equation in the estimation of LDL-C. Leroy SS et al. RICHIE. 2013;310(19): 2405-8777 (http://education.[employer]faq/VCW883) Performed By: #### 7 600, 483 #### [facility] [address], [address] [place] [address] [employer]: Vlad Booth MD Cholesterol.total/Cho lesterol in HDL [Mass ratio] 3.1 {ratio} Normal <5.0 [facility] Comment on above: Performed By: #### 7 600, 483 #### [facility] [address], [address] [place] [address] [employer]: Vlad Booth MD NON HDL CHOLESTEROL 125 mg/dL (calc) Normal <130 [facility] Comment on above: Result Comment: For patients with diabetes plus 1 major ASCVD risk factor, treating to a non-HDL-C goal of <100 mg/dL (LDL-C of <70 mg/dL) is considered a therapeutic option. Performed By: #### 7 600, 483 #### [facility] [address], [address] [place] [address] [employer]: Vlad Booth MD Triglyceride [Mass/Vol] 137 mg/dL Normal <150 [facility] Comment on above: Performed By: #### 7 600, 483 #### [facility] [address], [address] [place] [address] [employer]: Vlad Booth MD Laboratory - Chemistry and C hemistry - challengeon 03-11-2024 Cholesterol [Mass/Vol] 184 mg/dL Normal [facility] [employer] [facility] Cholesterol in HDL [Mass/Vol] 59 mg/dL Normal [facility] Cholesterol in LDL [Mass/Vol] 101 mg/dL Abnormal [facility] Glucose [Mass/Vol] 87 mg/dL Normal 65 - 99 mg/dL Hol [facility] [employer] [facility] Triglyceride [Mass/Vol] 137 mg/dL Normal [facility] [employer] [facility] No Panel Informationon 03-11 CHOL/HDLC RATIO 3.1 Normal [facility] [employer] [facility] NON HDL CHOLESTEROL 125 Normal [facility] Urgent Care Visit Reporton 0 07-16-2023 Urgent Care Visit Report [facility] [address], [address] [place] [address] OFFICE VISIT Date of Service: 07/16/23 MR#: [id number] Acct: [id number] Name: GEOFF AGUILAR Rep #: [id number] : 1980 Provider: HECTOR baez Age/Sex: 43/F Location: [facility] Status: Signed Intake Vital Signs 07/16/23 08:35 Height 6 ft 2 in Weight: 219 lb BMI 28.0 BP 111/77 Blood Pressure Location Lt brachial Position Sitting Pulse 114 H Pulse Source Monitor Temp 99.1 F Temp Source Temporal Pulse Oximetry (%) 96 Intake Visit Reasons: FEVER, HEADACHE, COUGH/FLU Chief Complaint: illness Allergies Penicillins Allergy (Mild, Verified 07/16/23 08:37) Rash Medications oseltamivir 75 mg capsule 75 mg PO BID 5 days #10 caps 07/16/23 [Rx Confirmed 07/16/23] HPI HPI Chief Complaint: illness Details: GEOFF AGUILAR, is a 43 F who presents to the office today for illness starting yesterday. Headache, body aches, fever(102). positive flu 3 days ago. ROS Const Constitutional: Positive for other (ROS negative except where noted above ) Exam Const General: cooperative and ill appearing Resp Effort Inspection: normal respiratory effort Auscultation: Bilateral: Clear to Auscultation Cardio Rate: regular rate Rhythm: regular rhythm Results POC FLU A B Office Flu A B Negative FLU A B Last Edit by Celina Hawley on 07/16/23 08:56 Coding Level of Care Code New Pt Off vis,new,level 4 Patient Type New History Comprehensive Exam Comprehensive Medical Decision Making Moderate Complexity Diagnoses URI (upper respiratory infection) J06.9 Assessment and Plan Assessment and Plan (1) URI (upper respiratory infection): Status: Acute Plan: suspect flu. test negative but patient has had sick contact, . discussed medication, side effects and how to take. encouraged rest, hydration. report worsening or no improvement. Orders: Orders POC FLU A B Today R05.9 - Cough, unspecified, R50.9 - Fever, unspecified Medications: New oseltamivir 75 mg PO BID 5 days 10 caps 0RF Plan discussed medication, side effects and how to take. encouraged rest, hydration. report worsening or no improvement. 07/16/23 1528 Date Linnea Briones SOD CUTTER SOD CUTTER-C Cosigner Signature: Date (if applicable) CC: Normal [facility] RPRon 06-30-2021 Reagin Ab RPR Ql (S) NR Normal Non Reactive Cl [facility] Comment on above: Performed By: #### R DC #### [facility] [address] [place] [place] [address] #### RUBIGG, HBSAG #### [facility] [address] [place] [address] GC/Chlamydia Amp, Uron 06-29 Chlamydia Amplif, Ur Normal [facility] Comment on above: Result Comment: Nega tive for For screening asymptomatic women, a vaginal swab specimen (APTIMA vaginal swab 607454) is optimal. Urine specimens have reduced sensitivity for Chlamydia trachomatis or Neisseria gonorrhoeae infection in female patients without symptoms. This test was developed and its performance characteristics determined by [facility] [place] ([facility]). It has not been cleared or approved by the FDA. [facility] is regulated under CLIA as qualified to perform high complexity testing. This test is used for clinical purposes. It should not be regarded as investigational or for research. Chlamydia For screening asymptomatic women, a vaginal swab specimen (APTIMA vaginal swab 629442) is optimal. Urine specimens have reduced sensitivity for Chlamydia trachomatis or Neisseria gonorrhoeae infection in female patients without symptoms. This test was developed and its performance characteristics determined by [facility]'s [facility] [place] ( [facility]). It has not been cleared or approved by the FDA. [facility] is regulated under CLIA as qualified to perform high complexity testing. This test is used for clinical purposes. It should not be regarded as investigational or for research. trachomatis by For screening asymptomatic women, a vaginal swab specimen (APTIMA vaginal swab 157881) is optimal. Urine specimens have reduced sensitivity for Chlamydia trachomatis or Neisseria gonorrhoeae infection in female patients without symptoms. This test was developed and its performance characteristics determined by [facility] [place] ([facility]). It has not been cleared or approved by the FDA. [facility] is regulated under CLIA as qualified to perform high complexity testing. This test is used for clinical purposes. It should not be regarded as investigational or for research. amplification. For screening asymptomatic women, a vaginal swab specimen (APTIMA vaginal swab 723766) is optimal. Urine specimens have reduced sensitivity for Chlamydia trachomatis or Neisseria gonorrhoeae infection in female patients without symptoms. This test was developed and its performance characteristics determined by [facility] [place] ([facility]). It has not been cleared or approved by the FDA. [facility] is regulated under CLIA as qualified to perform high complexity testing. This test is used for clinical purposes. It should not be regarded as investigational or for research. Performed By: #### U GCCT #### [facility] [address] [place] [address] GC Amplification, Ur NGNEG Normal [facility] Comment on above: Performed By: #### U GCCT #### [facility] [address] [place] [address] Hepatitis B Surf. Agon 06-29 Hepatitis B Surf. Ag NEGAT Normal Negative [facility] Comment on above: Performed By: #### R DC #### [facility] [address] [place] [address] #### RUBIGG, HBSAG #### [facility] [address] [place] [address] Rubella IgG Antibodyon 06-29 Rubella IgG Ab 3.67 Index Value Normal [facility] Comment on above: Performed By: #### R DC #### [facility] [address] [place] [id number] #### RUBIGG, HBSAG #### [facility] [address] [place], [place] [address] Rubella IgG Ab, Qual Positive Abnormal Negative [facility] Comment on above: Performed By: #### R DC #### [facility] [address] [place] [address] #### RUBIGG, HBSAG #### [facility] [address] [place] [address] Laboratory - Microbiology an d Antimicrobial susceptibilityon 06-09-2021 FLUAV Ag IA Ql (Throat) Negative Normal [facility].; [facility]. HPVon 11-17-2020 HPV Interp Normal See Interp HPVN [facility] ([place]) Comment on above: Order Comment: Order placed by AP_HPV_ORDER rule from [id number] Result Comment: High Risk HPV Typing: NEGATIVE HPV types 16, 18, 31, 33, 35, 39, 45, 51, 52, 56, 58, 59, 66 and 68 DNA were undetectable or below the pre-set threshold. The jose High-Risk HPV DNA Test is not intended for use as a screening device for Pap normal women under age 30 and is not intended to substitute for regular Pap screening. The jose High-Risk HPV DNA Test is designed to augment existing methods for the detection of cervical disease and should be used in conjunction with clinical information derived from other diagnostic and screening tests, physical examinations and full medical history in accordance with appropriate patient management procedures. NOTE: A negative result does not preclude the presence of HPV infection because results depend on adequate specimen collection, absence of inhibitors and sufficient DNA to be detected. See Interp HPVN Performed By: #### H PV #### [address] [address] HPV Source Cervix Normal [facility] ([place]) Comment on above: Order Comment: Order placed by AP_HPV_ORDER rule from [id number] Performed By: #### H PV #### [place] [address] Pre Press Proofer Cytology Reporton 2020 Pre Press Proofer Cytology Report . Pathology Reports Accession: Collected Date/Time: Received Date/Time: Pathologist: [id number] 11/01/2020 13:45 EDT 11/02/2020 18:00 EDT Pre Press Proofer Cytology Report SPECIMEN: Specimen Description: Liquid Prep w/ HPV Specimen: Cervical/Endocervical Screening or Diagnostic: Screening RELEVANT HISTORY: LMP: 12/14/19 Post : Yes [id number] SPECIMEN ADEQUACY: SATISFACTORY FOR EVALUATION ENDOCERVICAL/TRANSFOR MATIONAL ZONE COMPONENT PRESENT INTERPRETATION/RESULT S: NEGATIVE FOR INTRAEPITHELIAL LESION OR MALIGNANCY ADJUNCTIVE TESTING: HIGH RISK HPV DNA TESTING ORDERED, REPORT TO FOLLOW UNDER SEPARATE COVER COMMENT: This Pap Test was successfully processed and evaluated with the assistance of the [employer] Local ThinPrep Test Imaging System. Electronically Signed by Pathology report verified by [facility]. Screened by: KK Electronically signed by Mariluz BURTON (ASCP) Sign-Out Date: 11/11/2020 14:45 Performing Lab: [facility], [address] [place] [address] Disclaimer The Pap test is a screening test for cervical cancer. As evidenced by published data, it is subject to both inherent false negative and false positive results. Your patient's results should be interpreted in context with pertinent clinical history including gynecological examination. Normal [facility] ([place]) Comment on above: Performed By: #### G YCR #### [place] [address] US BIOPYHSICAL PROFILE (FETA L)W/O NON STon 09-02-2020 US BIOPYHSICAL PROFILE ()W/O NON [place] [address] Patient: GEOFF AGUILAR Phone#: : 1980 Age: 40 Gender: F Pt. Type: Account: [id number] Location: [facility] Ordering: CARLOS ZARCO Exam Date: 09/02/2020/13:57 Family Phys: Charge Code: [id number] Physician: Butts Order #: [id number] DLP Dose#: PROCEDURE: US BIOPYHSICAL PROFILE ()W/O NON COMPARISON: [facility], OB INITIAL >14 WEEKS, 05/12/2020, 8:50. [facility], BIOPHYSICAL PROFILE, 08/26/2020, 7:07. INDICATIONS: Advanced maternal age TECHNIQUE: Complete sonographic examination for obstetrical and evaluation. FINDINGS: NUMBER: Single. POSITION: Vertex. AMNIOTIC FLUID VOLUME: Normal for age with CORNELIUS of 11.4 cm. PLACENTA LOCATION: Anterior. BIPARIETAL DIAMETER: 36 weeks 6 days HEAD CIRCUMFERENCE: 37 weeks 3 days ABD CIRCUMFERENCE: 39 weeks 6 days FEMUR LENGTH: 39 weeks 6 days ESTIMATED WEIGHT: 3695 g +/- 554.3 g HEART RATE: 136- 154 bpm ABNORMALITIES/OTHER: Femur length/head circumference ratio 23.68 (20.73-23.10). CLINICAL GA: 37 weeks 4 days CLINICAL CARLY: 09/19/2020 ULTRASOUND GA: 38 weeks 4 days ULTRASOUND CARLY: 09/12/2020 BIOPHYSICAL PROFILE: MOVEMENTS: 2 BREATHIN TONE: 2 CARDIAC ACCEL: NA AMNIOTIC FLUID: 2 CONCLUSION: Continued Report - Page 2 of 2 Patient: GEOFF AGUILAR Phone#: : 1980 Age: 40 Gender: F Pt. Type: Account: [id number] [facility] Exam Date: 09/02/2020/13:57 Family Phys: Charge Code: [id number] Physician: Butts Order #: [id number] DLP Dose#: 1. 6/8 in 35 minutes 2. Single live intrauterine gestation demonstrating appropriate interval growth compared to initial ultrasound 3. Femur length/head circumference ratio above normal range Dictated by: Teagan Diaz MD on 09/02/2020 at 15:11 Approved by: Teagan Diaz MD on 09/02/2020 at 15:42 Normal [facility] BIOPYHSICAL PROFILE (FETA L)W/O NON STon 08-26-2020 US BIOPYHSICAL PROFILE ()W/[place] [address] Patient: GEOFF AGUILAR Phone#: : 1980 Age: 40 Gender: F Pt. Type: Out Account: [id number] Location: Ordering: [facility] Exam Date: 08/26/2020/7:07 Family Phys: Charge Code: [id number] Physician: Butts Order #: [id number] DLP Dose#: CORRECTION Gestational age 30 weeks 1 day corrected to 38 weeks 1 day. Corrected on: 08/26/2020; PROCEDURE: US BIOPYHSICAL PROFILE ()W/O NON ST COMPARISON: [facility], , OB REPEAT, 07/27/2020, 7:39. INDICATIONS: Biophysical profile for advanced maternal age TECHNIQUE: Complete sonographic examination for obstetrical and evaluation. FINDINGS: NUMBER: Single. POSITION: Vertex. AMNIOTIC FLUID VOLUME: Normal for age with CORNELIUS of 9 4 cm. PLACENTA LOCATION: Anterior. ESTIMATED WEIGHT: 3813 grams/8 pound 6 ounces HEART RATE: 163 bpm ABNORMALITIES/OTHER: None. CLINICAL GA: 36 weeks 4 days CLINICAL CARLY: September 19, 2020 ULTRASOUND GA: 38 weeks 1 day ULTRASOUND CARLY: September 08, 2020 BPD and head circumference measure less than body parameters. FL/BPD, HC/AC and FL/HC ratios are out of range. BIOPHYSICAL PROFILE: MOVEMENTS: 2 BREATHIN TONE: 2 CARDIAC ACCEL: - AMNIOTIC FLUID: 2 Continued Report - Page 2 of 2 Patient: GEOFF AGUILAR Phone#: : 1980 Age: 40 Gender: F Pt. Type: Out Account: [id number] Location: [facility] Exam Date: 08/26/2020/7:07 Family Phys: Charge Code: [id number] Physician: Butts Order #: [id number] DLP Dose#: CONCLUSION: 1. SL IUP 38 weeks 1 day, CARLY September 08, 2020. 2. head parameters measure less than body parameters. 3. This report was communicated by telephone to Taisha Zarco, CNM at the dictation time shown below. Dictated by: Rosaura Barron MD on 08/26/2020 at 11:44 Approved by: Rosaura Barron MD on 08/26/2020 at 12:02 Dictated by: Rosaura Barron MD on 08/26/2020 at 12:24 Approved by: Rosaura Barron MD on 08/26/2020 at 12:24 Normal [facility] Laboratory - Chemistry and C hemistry - challengeon 10-19-2019 Albumin [Mass/Vol] 4.0 g/dL Normal 3.6 - 5.1 g/dL [employer]. Albumin/Globulin [Mass ratio] 1.7 {ratio} Normal 1.0 - 2.5 [employer], [employer] ALP [Catalytic activity/Vol] 54 U/L Normal 31 - 125 U/L [employer] ALT [Catalytic activity/Vol] 10 U/L Normal 6 - 29 U/L [employer] AST [Catalytic activity/Vol] 12 U/L Normal 10 - 30 U/L [employer], [employer]. Bilirubin [Mass/Vol] 0.3 mg/dL Normal 0.2 - 1 .2 mg/dL [employer] Calcium [Mass/Vol] 9.4 mg/dL Normal 8.6 - 10. 2 mg/dL [employer] Chloride [Moles/Vol] 108 mmol/L Normal 98 - 11 0 mmol/L [employer], [employer] Cholesterol [Mass/Vol] 125 mg/dL Normal [employer] Cholesterol in HDL [Mass/Vol] 57 mg/dL Normal [employer] Cholesterol in LDL [Mass/Vol] 53 mg/dL Normal [employer] CO2 [Moles/Vol] 23 mmol/L Normal 20 - 32 mmol/L [facility], [facility]. Creatinine [Mass/Vol] 0.83 mg/dL Normal 0.50 - 1.10 mg/dL [email or web address].; [facility], [facility] GFR/1.73 sq M.predicted among blacks MDRD (S/P/Bld) [Vol rate/Area] 104 mL/min/{1.73_m2} Normal [facility].; [facility], [facility] Glucose [Mass/Vol] 81 mg/dL Normal 65 - 99 mg/dL [facility].; [facility], [facility] Potassium [Moles/Vol] 4.2 mmol/L Normal 3.5 - 5.3 mmol/L [email or web address].; [facility], [facility] Protein [Mass/Vol] 6.4 g/dL Normal 6.1 - 8.1 g/dL [facility], [facility].; [facility], [facility] Sodium [Moles/Vol] 136 mmol/L Normal 135 - 146 mmol/L [email or web address].; [facility], [facility]. Triglyceride [Mass/Vol] 66 mg/dL Normal [email or web address]; [email or web address] Urea nitrogen [Mass/Vol] 16 mg/dL Normal 7 - 25 mg/dL [email or web address]; [place] [employer] [facility], [facility] Laboratory - Hematology and Cell countson 10-19-2019 Basophils (Bld) [#/Vol] 0.029 10*3/uL Normal 0 - 200 {cells/uL} [email or web address].; [facility], [facility]. Basophils/100 WBC (Bld) 0.5 % Normal [email or web address].; [facility], [facility]. Eosinophils (Bld) [#/Vol] 0.211 10*3/uL Normal 15 - 500 {cells/uL} [email or web address].; [facility], [facility]. Eosinophils/100 WBC (Bld) 3.7 % Normal [email or web address].; [place] [employer] [facility], [facility] Erythrocyte distribution width (RBC) [Ratio] 11.7 % Normal 11.0 - 15.0 % [email or web address].; [place] [employer] [facility], [facility] Hematocrit (Bld) [Volume fraction] 39.7 % Normal 35.0 - 45.0 % [facility], [facility].; [facility], [facility]. Hemoglobin (Bld) [Mass/Vol] 12.9 g/dL Normal 11.7 - 15.5 g/dL [facility], [facility].; [facility], [facility]. Lymphocytes (Bld) [#/Vol] 1.391 10*3/uL Normal 850 - 3900 {cells/uL} [facility], [facility].; [facility], [facility]. Lymphocytes/100 WBC (Bld) 24.4 % Normal [facility].; [facility], [facility]. MCH (RBC) [Entitic mass] 32.2 pg Normal 27.0 - 33.[address] [email or web address].; [facility], [facility]. MCHC (RBC) [Mass/Vol] 32.5 g/dL Normal 32.0 - 36.0 g/dL [facility], [facility].; [facility], [facility]. MCV (RBC) [Entitic vol] 99.0 fL Normal 80.0 - 100.[address] [email or web address].; [facility], [facility]. Monocytes (Bld) [#/Vol] 0.524 10*3/uL Normal 200 - 950 {cells/uL} [facility], [facility].; [facility], [facility]. Monocytes/100 WBC (Bld) 9.2 % Normal [facility], [facility].; [facility], [facility]. Neutrophils (Bld) [#/Vol] 3.545 10*3/uL Normal 1500 - 7800 {cells/uL} [facility], [facility].; [place] [employer], [facility]. Neutrophils/100 WBC (Bld) 62.2 % Normal [email or web address].; [facility], [facility]. Platelet mean volume (Bld) [Entitic vol] 11.5 fL Normal 7.5 - 12.5 fL [facility], [facility].; [place] [employer] Platelets (Bld) [#/Vol] 209 10*3/uL Normal 140 - 400 [email or web address].; [facility], [facility]. RBC (Bld) [#/Vol] 4.01 10*6/uL Normal 3.80 - 5.1 0 {Million/uL} [facility]; [email or web address] WBC (Bld) [#/Vol] 5.7 10*3/uL Normal 3.8 - 10.8 [facility]; [email or web address] No Panel Informationon 10-18 BUN/CREATININE RATIO NOT APPLICABLE Normal 6 - 22 [facility]; [email or web address] CHOL/HDLC RATIO 2.2 Normal [facility]; [facility] eGFR NON-AFR. [place] 90 Normal [facility]; [email or web address] GLOBULIN 2.4 Normal 1.9 - 3.7 [facility]; [email or web address] NON HDL CHOLESTEROL 68 Normal [facility]; [email or web address] TSH W/REFLEX TO FT4 0.82 {mIU/L} Normal [facility]; [email or web address] Vital Signs Date Time Vital Sign Value Performing Clinician Facility 03-11-2024 14:20-0400 Body height 187.96 cm [facility] Work Phone: [facility]; [email or web address] 03-11-2024 14:20-0400 Body mass index (BMI) [Ratio] 28.12 kg/m2 [facility] Work Phone: [facility]; [email or web address] 03-11-2024 14:20-0400 Body surface area Derived from formula 2.26 m2 [facility] Work Phone: [email or web address]; [email or web address] 03-11-2024 14:20-0400 Body weight 99.34 kg [facility] Work Phone: [email or web address]; [place] [employer] [email or web address] 03-11-2024 14:20-0400 Diastolic blood pressure 80 mm[Hg] [facility] Work Phone: [email or web address]; [facility] Comment on above: Patient Position: Sitting; Cuff Location : Left Arm; Cuff Size: Large 03-11-2024 14:20-0400 Heart rate 75 /min Zara Lewis LPN Work Phone: [facility].; [place] [employer] [facility]. Comment on above: Pattern: Regular 03-11-2024 14:20-0400 Systolic blood pressure 121 mm[Hg] Zara Lewis LPN Work Phone: [facility].; [place] [employer] [facility]. Comment on above: Patient Position: Sitting; Cuff Location : Left Arm; Cuff Size: Large 10-15-2023 14:03-0400 Body height 187.96 cm 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 [facility], [facility].; [place] [employer] [facility]. 10-15-2023 14:03-0400 Body mass index (BMI) [Ratio] 28.25 kg/m2 Celina Hudson [facility], [facility].; [facility], [facility]. 10-15-2023 14:03-0400 Body surface area Derived from formula 2.26 m2 Celina Hudson [facility], [facility].; [place] [employer] [facility], [employer]. 10-15-2023 14:03-0400 Body temperature 98.2 [degF] Celina Hudson [facility], [facility].; [place] [employer]. Comment on above: Method: Tympanic 10-15-2023 14:03-0400 Body weight 99.79 kg Celina Hudson [facility].; [place] [employer] [facility]. 10-15-2023 14:03-0400 Diastolic blood pressure 80 mm[Hg] Celina Hudson [facility], [facility].; [place] [employer]. Comment on above: Patient Position: Sitting; Cuff Location : Left Arm; Cuff Size: Large 10-15-2023 14:03-0400 Heart rate 106 /min 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 [facility], [facility].; [place] [employer]. Comment on above: Pattern: Regular 10-15-2023 14:03-0400 Systolic blood pressure 114 mm[Hg] Celina Hudson TESFAYE [facility].; [employer] [facility]. Comment on above: Patient Position: Sitting; Cuff Location : Left Arm; Cuff Size: Large 07-24-2023 15:42-0500 Body height 187.96 cm Trena Greer MD Work Phone: [place] [employer] [facility] [employer]; [employer] 07-24-2023 15:42-0500 Body mass index (BMI) [Ratio] 26.96 kg/m2 Trena Greer MD Work Phone: [employer]; [place] [employer] 07-24-2023 15:42-0500 Body surface area Derived from formula 2.22 m2 Trena Greer MD Work Phone: [employer]; [employer]. 07-24-2023 15:42-0500 Body temperature 99.6 [degF] Trena Greer MD Work Phone: [employer]; [employer]. Comment on above: Method: Tympanic 07-24-2023 15:42-0500 Body weight 95.26 kg Trena Greer MD Work Phone: [employer]. 07-24-2023 15:42-0500 Diastolic blood pressure 86 mm[Hg] Trena Greer MD Work Phone: [employer]; [employer]. Comment on above: Patient Position: Sitting; Cuff Location : Left Arm; Cuff Size: Standard 07-24-2023 15:42-0500 Heart rate 80 /min Trena Greer MD Work Phone: [employer]; [employer]. Comment on above: Pattern: Regular 07-24-2023 15:42-0500 Inhaled oxygen concentration 20 % Trena Greer MD Work Phone: [employer]; [facility] Comment on above: Room air 07-24-2023 15:42-0500 Inhaled oxygen concentration 21 % Trena Greer MD Work Phone: [facility]; [employer]. Comment on above: Room air 07-24-2023 15:42-0500 SaO2% (BldA) [Mass fraction] 99 % Trena Greer MD Work Phone: [place] [employer]. 07-24-2023 15:42-0500 Systolic blood pressure 126 mm[Hg] Trena Greer MD Work Phone: [employer]; [employer]. Comment on above: Patient Position: Sitting; Cuff Location : Left Arm; Cuff Size: Standard 12-11-2021 15:42-0400 [facility]PA[facility] Work Phone: [employer]; [employer]. 12-11-2021 15:42-0400 Body mass index (BMI) [Ratio] 30.04 kg/m2 [facility] [employer] [facility]ICLE REPAIRER Work Phone: [employer]; [place] [employer]. 12-11-2021 15:42-0400 Body surface area Derived from formula 2.32 m2 [facility] [employer] [facility]HICLE REPAIRER Work Phone: [employer]; [employer]. 12-11-2021 15:42-0400 Body weight 106.14 kg [facility] TR[facility]HICLE REPAIRER Work Phone: [employer]; [employer]. 12-11-2021 15:42-0400 Diastolic blood pressure 80 mm[Hg] Zara Joshua TRACK VEHICLE REPAIRER Work Phone: [employer].; [employer]. Comment on above: Patient Position: Sitting; Cuff Location : Left Arm; Cuff Size: Standard 12-11-2021 15:42-0400 Systolic blood pressure 118 mm[Hg] Zara Joshua TRACK VEHICLE REPAIRER Work Phone: [employer]. Comment on above: Patient Position: Sitting; Cuff Location : Left Arm; Cuff Size: Standard 12-04-2019 14:43-0400 Body height 187.96 cm Zara Lewis TRACK VEHICLE REPAIRER Work Phone: [employer]. 12-04-2019 14:43-0400 Body mass index (BMI) [Ratio] 23.75 kg/m2 Zara Lewis TRACK VEHICLE REPAIRER Work Phone: [employer].; [employer]. 12-04-2019 14:43-0400 Body surface area Derived from formula 2.1 m2 Zara Lewis TRACK VEHICLE REPAIRER Work Phone: [employer]. 12-04-2019 14:43-0400 Body weight 83.92 kg Zara Lewis TRACK VEHICLE REPAIRER Work Phone: [employer].; [employer]. 12-04-2019 14:43-0400 Diastolic blood pressure 80 mm[Hg] Zara Lewis TRACK VEHICLE REPAIRER Work Phone: [employer]. Comment on above: Patient Position: Sitting; Cuff Location : Left Arm; Cuff Size: Standard 12-04-2019 14:43-0400 Heart rate 77 /min Zara Lewis LPN Work Phone: [employer] Comment on above: Pattern: Regular 12-04-2019 14:43-0400 Systolic blood pressure 116 mm[Hg] Zara Lewis TRACK VEHICLE REPAIRER Work Phone: [employer]. Comment on above: Patient Position: Sitting; Cuff Location : Left Arm; Cuff Size: Standard 11-03-2019 13:29-0400 Body height 187.96 cm Nicolleaman Castrejon TRACK VEHICLE REPAIRER [place] [employer] 11-03-2019 13:29-0400 Body mass index (BMI) [Ratio] 23.75 kg/m2 Nicolle Maryugg TRACK VEHICLE REPAIRER [place] [employer] [facility] [place] [employer] [facility] 11-03-2019 13:29-0400 Body surface area Derived from formula 2.1 m2 Nicolle Maryugg TRACK VEHICLE REPAIRER [facility] [place] [employer] 11-03-2019 13:29-0400 Body weight 83.92 kg Nicolle Hernandezugg TRACK VEHICLE REPAIRER [facility] [place] [employer] [facility] 11-03-2019 13:29-0400 Diastolic blood pressure 83 mm[Hg] Nicolle Maryugg TRACK VEHICLE REPAIRER [place] [employer] [facility] [place] [employer] [facility] Comment on above: Patient Position: Sitting; Cuff Location : Left Arm; Cuff Size: Standard 11-03-2019 13:29-0400 Heart rate 89 /min Nicolle Hernandezugg TRACK VEHICLE REPAIRER [place] [employer] [facility] [employer] Comment on above: Pattern: Regular 11-03-2019 13:29-0400 Systolic blood pressure 127 mm[Hg] Nicolle Maryugg TRACK VEHICLE REPAIRER [place] [employer] [facility] [place] [employer] Comment on above: Patient Position: Sitting; Cuff Location : Left Arm; Cuff Size: Standard 10-19-2019 09:53-0400 Body height 187.96 cm Zara Joshua [facility] Work Phone: [place] [employer] [facility] [employer] 10-19-2019 09:53-0400 Body mass index (BMI) [Ratio] 23.75 kg/m2 [facility] Work Phone: [place] [employer] [facility], [facility].; [employer] 10-19-2019 09:53-0400 Body surface area Derived from formula 2.1 m2 [facility] Work Phone: [place] [employer] [facility] [employer] 10-19-2019 09:53-0400 Body weight 83.92 kg [facility] Work Phone: [place] [employer] [facility], [employer] 10-19-2019 09:53-0400 Diastolic blood pressure 70 mm[Hg] Zara Joshua TRACK VEHICLE REPAIRER Work Phone: [employer] Comment on above: Patient Position: Sitting; Cuff Location : Left Arm; Cuff Size: Standard 10-19-2019 09:53-0400 Heart rate 92 /min Zara Joshua TRACK VEHICLE REPAIRER Work Phone: [employer] Comment on above: Pattern: Regular 10-19-2019 09:53-0400 Systolic blood pressure 110 mm[Hg] Zara Joshua TRACK VEHICLE REPAIRER Work Phone: [employer] Comment on above: Patient Position: Sitting; Cuff Location : Left Arm; Cuff Size: Standard 09-30-2019 13:54-0400 Body height 187.96 cm Zara Joshua TRACK VEHICLE REPAIRER Work Phone: [employer] 09-30-2019 13:54-0400 Body mass index (BMI) [Ratio] 23.75 kg/m2 Zara Joshua TRACK VEHICLE REPAIRER Work Phone: [employer] 09-30-2019 13:54-0400 Body surface area Derived from formula 2.1 m2 Zara Joshua TRACK VEHICLE REPAIRER Work Phone: [employer] 09-30-2019 13:54-0400 Body weight 83.92 kg Zara Joshua TRACK VEHICLE REPAIRER Work Phone: [employer] 09-30-2019 13:54-0400 Diastolic blood pressure 83 mm[Hg] Zara Joshua TRACK VEHICLE REPAIRER Work Phone: [employer]. Comment on above: Patient Position: Sitting; Cuff Location : Left Arm; Cuff Size: Standard 09-30-2019 13:54-0400 Heart rate 76 /min Zara Joshua TRACK VEHICLE REPAIRER Work Phone: [place]; [employer]. Comment on above: Pattern: Regular 09-30-2019 13:54-0400 Systolic blood pressure 122 mm[Hg] Zara Thomasony TRACK VEHICLE REPAIRER Work Phone: [place]; [employer]. Comment on above: Patient Position: Sitting; Cuff Location : Left Arm; Cuff Size: Standard 04-22-2019 10:57-0500 Body height 187.96 cm Zara Lewis TRACK VEHICLE REPAIRER Work Phone: [place]; [employer]. 04-22-2019 10:57-0500 Body mass index (BMI) [Ratio] 24.01 kg/m2 Zara Lewis TRACK VEHICLE REPAIRER Work Phone: [place]; [employer]. 04-22-2019 10:57-0500 Body surface area Derived from formula 2.11 m2 Zara Lewis LPN Work Phone: [place]; [employer]. 04-22-2019 10:57-0500 Body temperature 97.9 [degF] Zara Lewis LPN Work Phone: [place]; [employer]. Comment on above: Method: Tympanic 04-22-2019 10:57-0500 Body weight 84.82 kg Zara Lewis LPN Work Phone: [place]; [employer]. 04-22-2019 10:57-0500 Diastolic blood pressure 79 mm[Hg] Zara Thomasony TRACK VEHICLE REPAIRER Work Phone: [place]; [employer]. Comment on above: Patient Position: Sitting; Cuff Location : Left Arm; Cuff Size: Standard 04-22-2019 10:57-0500 Heart rate 62 /min Zara Thomasony TRACK VEHICLE REPAIRER Work Phone: [place]; [employer]. Comment on above: Pattern: Regular 04-22-2019 10:57-0500 Systolic blood pressure 119 mm[Hg] Zara Joshua TRACK VEHICLE REPAIRER Work Phone: [employer] Comment on above: Patient Position: Sitting; Cuff Location : Left Arm; Cuff Size: Standard 04-14-2018 15:12-0500 Body height 187.96 cm Zara Thomasony TRACK VEHICLE REPAIRER Work Phone: [employer] 04-14-2018 15:12-0500 Body mass index (BMI) [Ratio] 24.14 kg/m2 Zara Joshua TRACK VEHICLE REPAIRER Work Phone: [employer] 04-14-2018 15:12-0500 Body surface area Derived from formula 2.12 m2 Zara Joshua TRACK VEHICLE REPAIRER Work Phone: [employer]. 04-14-2018 15:12-0500 Body weight 85.28 kg Zara Thomasony TRACK VEHICLE REPAIRER Work Phone: [employer] 04-14-2018 15:12-0500 Diastolic blood pressure 77 mm[Hg] Zara Joshua TRACK VEHICLE REPAIRER Work Phone: [employer]. Comment on above: Patient Position: Sitting; Cuff Location : Left Arm; Cuff Size: Standard 04-14-2018 15:12-0500 Heart rate 89 /min Zara Thomasony TRACK VEHICLE REPAIRER Work Phone: [place]; [employer]. Comment on above: Pattern: Regular 04-14-2018 15:12-0500 Systolic blood pressure 121 mm[Hg] Zara Joshua TRACK VEHICLE REPAIRER Work Phone: [employer]. Comment on above: Patient Position: Sitting; Cuff Location : Left Arm; Cuff Size: Standard Encounters Encounter Date Encounter Type Care Provider Facility Start: 02-14-2025 End: 02-14-2025 Emergency department patient visit [facility] Start: 04-28-2024 End: 04-28-2024 Phone Encounter Trena Greer MD Work Phone: [place] Start: 03-12-2024 End: 03-12-2024 Orders Trena Greer MD Work Phone: [place] Start: 03-11-2024 End: 03-11-2024 Patient encounter procedure Trena Greer MD Work Phone: [place] Start: 03-11-2024 End: 03-11-2024 Physical examination Zara Lewis TESFAYE Work Phone: [place]; [place] Start: 03-11-2024 Physical examination Trena hernandez MD Work Phone: [place]; [place] Start: 03-11-2024 Review Trena randolph MD Work Phone: [place] Start: 10-15-2023 End: 10-15-2023 Office outpatient visit 15 minutes Trena Greer MD Work Phone: [place] Start: 07-24-2023 End: 07-24-2023 Patient encounter procedure Trena Greer MD Work Phone: [place] Start: 07-16-2023 End: 07-16-2023 ambulatory Linnea Briones NP Facility:[facility] Start: 05-02-2022 End: 05-02-2022 Medication Trena Greer MD Work Phone: [place] Start: 01-17-2022 End: 01-17-2022 Orders Trena Greer MD Work Phone: [place] Start: 12-11-2021 End: 12-11-2021 Procedure Trena Greer MD Work Phone: [place] Start: 06-09-2021 End: 06-09-2021 Orders Trena Greer MD Work Phone: [place] Start: 09-06-2020 End: 09-06-2020 ambulatory [facility] Start: 09-02-2020 End: 09-02-2020 ambulatory [facility] Start: 08-30-2020 End: 08-30-2020 ambulatory [facility] Start: 08-26-2020 End: 08-26-2020 ambulatory [facility] Start: 12-04-2019 End: 12-04-2019 Office outpatient visit 15 minutes Trena Greer MD Work Phone: [place] Start: 11-03-2019 End: 11-03-2019 Procedure Trena Greer MD Work Phone: [place] Start: 10-19-2019 End: 10-19-2019 Patient encounter procedure Trena Greer MD Work Phone: [place] Start: 10-19-2019 End: 10-19-2019 Physical examination Trena Greer MD Work Phone: [place]; [place] Start: 09-30-2019 End: 09-30-2019 Office outpatient new 45 minutes Trena Greer MD Work Phone: [place] Start: 04-22-2019 End: 04-22-2019 Office outpatient visit 10 minutes Trena Greer MD Work Phone: [place] Start: 07-16-2018 End: 07-16-2018 Orders Trena Greer MD Work Phone: [place] Start: 04-14-2018 End: 04-15-2018 Patient encounter procedure Trena Greer MD Work Phone: [place] Start: 03-12-2018 End: 03-12-2018 Nursing evaluation of patient and report Trena Greer MD Work Phone: [facility]. Physical examination Nicolle Castrejon LPN [facility] Procedures Date Procedure Procedure Detail Performing Clinician Start: 03-11-2024 End: 03-11-2024 Body mass index documented Trena carranza MD Work Phone: Start: 03-11-2024 End: 03-11-2024 Depression screening Trena Greer MD Work Phone: Start: 03-11-2024 End: 03-11-2024 Scr dep neg, no plan reqd Trena carballo MD Work Phone: Start: 12-11-2021 End: 12-11-2021 Shaving skin lesion 1 trunk/arm/leg diam 0.5cm/< Trena Greer MD Work Phone: Start: 11-02-2020 End: 11-02-2020 Microscopic examination of cervical Papanicolaou smear Zara Lewis LPN Work Phone: Comment on above: Normal. HPV negative due again in 2025 Start: 12-04-2019 End: 12-07-2019 Radex ankle complete minimum 3 views Trena Greer MD Work Phone: Start: 11-03-2019 End: 11-03-2019 Removal intrauterine device iud Crystal K Uptain CNM Work Phone: Start: 10-19-2019 End: 10-19-2019 Depression screening Trena Greer MD Work Phone: Start: 10-19-2019 End: 10-19-2019 Scr dep neg, no plan reqd Trena carballo MD Work Phone: [facility] Nicolle Castrejon L PN [facility] Zarajadon Lewis LP N Work Phone: Microscopic examinat ion of cervical Papanicolaou smear Nicolle Castrejon LPN [place] on above: [place] (pt re ported) Microscopic examinat ion of cervical Papanicolaou smear 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 [place] on above: [place]pt re [place]ed) Microscopic examinat ion of cervical Papanicolaou smear Zara Lewis [employer] Work Phone: Comment on above: [place] (pt re ported) Plan of Treatment Date Care Activity Detail Author Start: 03-11-2024 Lipid panel LIPID PANEL ([id number]) Start: 11-Mar-2024 15:09-04:00 Request [employer]; [place] Start: 03-11-2024 Glucose quantitative blood xcpt reagent strip GLUCOSE, SERUM ([id number]) Start: 11-Mar-2024 15:08-04:00 Request [employer]; [place] Immunizations Immunization Date Immunization Notes Care Provider Fa vasu 03-12-2018 influenza, injectabl e, quadrivalent, contains preservative Trena Greer MD Work Phone: [facility] [employer]; [employer]. Comment on above: Site: Left DeltoidVI S Given: * Influenza - Inactivated (12/24/14) 05-20-2016 tetanus toxoid, reduced diphtheria toxoid, and acellular pertussis vaccine, adsorbed Trena Greer MD Work Phone: [employer] [facility]; [place] Payers Date Payer Category Payer Self-pay 2023 Unknown [id number] 1980 Unknown [id number] [id number] 1980 Unknown [id number] [id number] [id number] 1982 Unknown [id number] 2.16.84 [id number] 1982 Unknown [id number] [id number] [id number] 1982 Unknown [id number] 2.16.84 [id number] 1982 Unknown [id number] [id number] Unknown [id number] Unknown [employer] Unknown [id number] Social History Date Type Detail Facility Child(freda) Child(freda) [facility]; [place] Tobacco Use: Tobacco Use: ; Former smoker . [place]; [place] Female [facility]; [place] Work Phone: Ex-smoker [facility]; [place] Work Phone: Summary Purpose Family History No Family History Records Found Mother Status:Active Comments: d. Multiple Myeloma Status:Active Comments:Matern al Grandmother. Pancreatic Cancer Status:Active Comments:Irma connors Mother Status:Active Comments: d. Multiple Myeloma Status:Active Comments:Matern al Grandmother. Pancreatic Cancer Status:Active Comments:Irma connors Mother Status:Active Comments: d. Multiple Myeloma Status:Active Comments:Matern al Grandmother. Pancreatic Cancer Status:Active Comments:Irma connors Mother Status:Active Comments: d. Multiple Myeloma Status:Active Comments:Matern al Grandmother. Pancreatic Cancer Status:Active Comments:Irma connors Mother Status:Active Comments: d. Multiple Myeloma Status:Active Comments:Matern al Grandmother. Pancreatic Cancer Status:Active Comments:Irma connors Father Status:Active Comments:In [facility] as far as she knows 03/11/2024 Mother Status:Active Comments: d. Multiple Myeloma Status:Active Comments:Matern al Grandmother. Pancreatic Cancer Status:Active Comments:Irma connors Father Status:Active Comments:In [facility]. as far as she knows 03/11/2024 Mother Status:Active Comments: d. Multiple Myeloma Status:Active Comments:Matern al Grandmother. Pancreatic Cancer Status:Active Comments:Irma connors Father Status:Active Comments:In [facility]. as far as she knows 03/11/2024 Mother Status:Active Comments: d. Multiple Myeloma Status:Active Comments:Matern al Grandmother. Pancreatic Cancer Status:Active Comments:Irma connors Father Status:Active Comments:In [facility] health. as far as she knows 03/11/2024 Mother Status:Active Comments: d. Multiple Myeloma Status:Active Comments:Matern al Grandmother. Pancreatic Cancer Status:Active Comments:Irma connors Father Status:Active Comments:In [facility] health. as far as she knows 03/11/2024 Mother Status:Active Comments: d. Multiple Myeloma Status:Active Comments:Matern al Grandmother. Pancreatic Cancer Status:Active Comments:Irma connors Father Status:Active Comments:In [facility] health. as far as she knows 03/11/2024 Mother Status:Active Comments: d. Multiple Myeloma Status:Active Comments:Matern al Grandmother. Pancreatic Cancer Status:Active Comments:Irma connors Father Status:Active Comments:In [facility]. as far as she knows 03/11/2024 Mother Status:Active Comments: d. Multiple Myeloma Status:Active Comments:Matern al Grandmother. Pancreatic Cancer Status:Active Comments:Irma connors Advance Directives No Advanced Directives Records FoundNo Advanced Directives Records FoundNo Advanced Directives Records FoundNo Advanced Directives Records FoundNo Advanced Directives Records FoundNo Advanced Directives Records Found Additional Source Comments INFORMATION SOURCE (unrecogn ized section and content) DATE CREATED AUTHOR 09/07/2020 [facility] DATE CREATED AUTHOR AUTHOR'S ORGANIZ ATION 11/19/2020 [facility] DATE CREATED AUTHOR AUTHOR'S ORGANIZ ATION 06/30/2021 [facility] DATE CREATED AUTHOR AUTHOR'S ORGANIZ ATION 09/20/2023 [facility] DATE CREATED AUTHOR AUTHOR'S ORGANIZ ATION 03/13/2024 [facility] DATE CREATED AUTHOR AUTHOR'S ORGANIZ ATION 02/20/2025 [facility] FOR RECORDS PERTAINING TO PATIENTS WHO ARE OR HAVE BEEN ENROLLED IN A CHEMICAL DEPENDENCY/SUBSTANCEABUSE PROGRAM, SOME INFORMATION MAY BE OMITTED. This clinical summary was aggregated from multiple sources. Caution should be exercised in using it in the provision of clinical care. This summary normalizes information from multiple sources, and as a consequence, information in this document may materially change the coding, format and clinical context of patient data. In addition, data may be omitted in some cases. CLINICAL DECISIONS SHOULD BE BASED ON THE PRIMARY CLINICAL RECORDS. [facility] [employer] [facility]. provides no warranty or guarantee of the accuracy or completeness of information in this document.
== END | disposition home or self-care (01) ==
LOC: US 08:49
PROVIDERS: PCP Family Medicine; Referring Provider Family Medicine; Visit Provider Family Medicine
DX: R10.13 Epigastric pain (principal)
CPT/HCPCS: 76700